=== PATIENT | female | born 1955 | race Caucasian/White ===

== ENCOUNTER 2018-08-22 10:35 | Inpatient (IN) ==
[2018-08-22] MEDS ORDERED: DILAUDID IV ONE ×3 (10:45→11:18)
[2018-08-22] MEDS ORDERED: ZOFRAN IV ONE ×2 (10:46→12:47)
--- NOTE | 2018-08-22 11:19 | Diag Imaging Result Doc PS360 ---
EXAM: ANKLE COMPLETE RIGHT 08/22/2018 HISTORY: injury TECHNIQUE: Portable right ankle two views COMMENT: There is a fracture dislocation with fractures of the distal fibula and medial malleolus and posterior distal tibia and anterior displacement of the ankle mortise with respect to the talar dome. There are also calcifications in the distal Achilles tendon which are presumably chronic. IMPRESSION: Fracture dislocation as described. Electronically signed by Allen Hagan 08/22/2018 11:17 AM
--- NOTE | 2018-08-22 11:46 | Diag Imaging Result Doc PS360 ---
EXAM: ANKLE 2 VIEWS RIGHT 08/22/2018 HISTORY: post reduct TECHNIQUE: One view lateral only COMMENT: The dislocation is not reduced. IMPRESSION: Fracture dislocation. Electronically signed by Allen Hagan 08/22/2018 11:44 AM
[2018-08-22] MEDS ORDERED: NS 1,000 ML IV ONE (12:13)
[2018-08-22] MEDS ORDERED: NS 1,000 ML ONE (12:17)
[2018-08-22] MEDS ORDERED: DIPRIVAN 1% IV ONE (12:31)
[2018-08-22] MEDS ORDERED: NARCAN ONE (12:39)
[2018-08-22] MEDS ORDERED: ZOFRAN ONE (12:48)
--- NOTE | 2018-08-22 13:12 | Diag Imaging Result Doc PS360 ---
EXAM: ANKLE 2 VIEWS RIGHT 08/22/2018 HISTORY: post reduc TECHNIQUE: Right ankle two views COMMENT: The dislocation present previously remains with the ankle mortise line anterior to the talar dome. There are fractures of the distal tibia and fibula as previously described. This is stabilized in a cast. IMPRESSION: Fracture dislocation. Electronically signed by Allen Hagan 08/22/2018 1:09 PM
--- NOTE | 2018-08-22 13:18 | Diag Imaging Result Doc PS360 ---
EXAM: ANKLE 2 VIEWS RIGHT 08/22/2018 HISTORY: right ankle fracture TECHNIQUE: Right ankle two views COMMENT: There is again noted the fracture dislocation with the plafond of the distal tibia lying anterior to the talar dome. IMPRESSION: Fracture dislocation. Electronically signed by Allen Hagan 08/22/2018 1:16 PM
--- NOTE | 2018-08-22 13:47 | Diag Imaging Result Doc PS360 ---
EXAM: CHEST-PORTABLE 08/22/2018 HISTORY: fall TECHNIQUE: AP portable upright at 1340 COMMENT: There is no evidence of acute cardiac or pulmonary disease. There are apparent granulomata in the right lower lobe. There is no evidence of pneumothorax or pleural fluid collections. IMPRESSION: No evidence of acute disease. Electronically signed by Allen Hagan 08/22/2018 1:45 PM
[2018-08-22 14:49] LABS: INR 0.98; PROTIME 13.8 Seconds (11.0-16.0)
[2018-08-22 14:58] LABS: BASO# 0.02 X1000 (0.0-0.2); BASO% 0.2 % (0.0-0.8); EOS# 0.01 X1000 (0.0-0.7); EOS% 0.1 % (0.0-10.0); HEMATOCRIT 37.7 % (37.0-47.0); HEMOGLOBIN 12.7 g/dL (12.0-16.0); IMM GRAN# 0.08 X1000 (0.0-0.04); IMM GRAN% 0.6 % (0.0-0.5); LYMPH# 0.86 X1000 (1.2-3.4); LYMPH% 6.8 % (20.5-51.1); MCH 30.4 PG (27-31); MCHC 33.7 g/dL (33-37); MCV 90.2 FL (81-99); MONO# 0.49 X1000 (0.11-0.59); MONO% 3.9 % (1.7-9.3); MPV 10.6 FL (7.4-10.4); NEUT# 11.13 X1000 (1.4-6.5); NEUT% 88.4 % (42.2-75.2); PLT 265 X1000 (130-400); RBC 4.18 XMIL (4.2-5.4); RDW 13.1 % (11.5-14.5); WBC 12.59 X1000 (4.8-10.8)
[2018-08-22 15:01] LABS: AGAP 12; BUN 17 mg/dL (8-22); CALCIUM 8.2 mg/dL (8.8-10.2); CHLORIDE 104 mmol/L (98-107); COSMO 282; CREATININE 0.8 mg/dL (0.5-0.9); ESTIMATED GFR > 60; GLUCOSE 121 mg/dL (70-104); POTASSIUM 3.4 mmol/L (3.5-5.1); SODIUM 140 mmol/L (136-145); TCO2 24 mmol/L (25-35)
[2018-08-22] MEDS ORDERED: TYLENOL PO PRN (15:21)
[2018-08-22] MEDS ORDERED: ZOFRAN IV PRN (15:21)
[2018-08-22] MEDS ORDERED: DILAUDID IV PRN (15:25)
[2018-08-22] MEDS ORDERED: FOSAMAX PO SCH ×3 (15:30→20:00)
[2018-08-22 15:59] LABS: URINE SOURCE CATH
[2018-08-22] MEDS ORDERED: KLOR-CON PO ONE (16:05)
[2018-08-22 16:11] LABS: BILIRUBIN URINE NEGATIVE (NEGATIVE); BLOOD URINE NEGATIVE (NEGATIVE); COLOR YELLOW; GLUCOSE URINE NEGATIVE (NEGATIVE); KETONE URINE NEGATIVE (NEGATIVE); LEUKOCYTES URINE NEGATIVE (NEGATIVE); NITRITE URINE NEGATIVE (NEGATIVE); PH URINE 7.5; PROTEIN URINE NEGATIVE (NEGATIVE); SP GRAVITY URINE 1.014; TURBIDITY URINE CLEAR (CLEAR); UROBILINOGEN URINE NORMAL (NORMAL)
[2018-08-22 16:12] LABS: UR EPITHELIAL CELLS <10 /HPF (<10); URINE BACTERIA NEGATIVE /HPF; URINE RBC <10 /HPF (<10); URINE WBC <10 /HPF (<10)
--- NOTE | 2018-08-22 16:53 | EKG Report ---
Test Performed on : 08/22/2018 1:59:19 PM Test Reason : ED. NO EKG ORDER FOR MUSE Blood Pressure : / mmHG Vent. Rate : 070 BPM Atrial Rate : 070 BPM P-R Int : 186 ms QRS Dur : 090 ms QT Int : 470 ms P-R-T Axes : 059 057 055 degrees QTc Int : 507 ms Normal sinus rhythm. ST & T wave abnormality, consider anterior ischemia Abnormal ECG No previous ECGs available Unconfirmed Result
--- NOTE | 2018-08-22 17:03 | HISTORY AND PHYSICAL ---
PRIMARY CARE PROVIDER: Dr. Magda Palumbo. CHIEF COMPLAINT: Fall with right ankle pain. HISTORY OF PRESENT ILLNESS: Ms. Jewels Birch is a 63-year-old female with a medical history of osteoarthritis, hypertension, chronic hypokalemia, GERD, anxiety, peptic ulcer disease and mitral valve prolapse. She states that she was in her flower garden gardening and was digging up some rosebushes. She stepped back in her flip-flops, and she felt her ankle turn and crunch, and she went to the ground. She has no other areas that are causing her pain. Imaging revealed that she has a dislocation and a fracture of the right ankle described as a fracture dislocation with fractures of the distal fibula and medial malleolus and posterior distal tibia and anterior displacement of the ankle mortise with respect to the talar dome and calcifications of the distal Achilles tendon that are chronic. There was an attempt to reset the right ankle 3 separate times under conscious sedation which was unsuccessful. Dr. Garcia has consulted and plan is for a right ankle repair in the morning. During assessment and evaluation of the patient, her heart rhythm on the monitor had a short 8-beat run of either sinus tachycardia or SVT. It did not appear irregular, but there was no obvious P wave either. Given the history of mitral valve prolapse and chronic hypokalemia, we will further evaluate the electrolyte imbalance. She did not feel any palpitations. She did not even realize it had happened. PAST MEDICAL HISTORY: 1. Osteoarthritis. 2. Hypertension. 3. Hypokalemia. 4. GERD. 5. Anxiety. 6. Peptic ulcer disease. 7. Mitral valve prolapse. SURGICAL HISTORY: 1. Hysterectomy. 2. Tonsillectomy. 3. Adenoidectomy. SOCIAL HISTORY: Denies tobacco, alcohol or illicit drug use. She lives at home with her and enjoys gardening and her flower garden. FAMILY HISTORY: Father from stomach cancer. Mother had leukemia. She had a grandfather who had myocardial infarction and arthritis. ALLERGIES: Penicillin causes her to pass out. Aspirin causes gastric irrigation. She states that codeine makes her dizzy and nauseated. HOME MEDICATIONS: 1. Alendronate sodium 35 mg p.o. weekly. 2. Cozaar 50 mg p.o. daily. 3. Potassium chloride extended release 20 mEq daily. 4. Mobic 7.5 mg p.o. daily. 5. Amlodipine 5 mg p.o. daily. 6. Protonix 40 mg p.o. daily. 7. Prozac 20 mg p.o. daily. REVIEW OF SYSTEMS: A 14-point review of systems are complete and all are negative except for those mentioned above in HPI. Currently, she is starting to feel a little more pressure coming back in the right ankle. It is warm to touch. It has got a good pulse. It is currently in an Antonio wrap type cast. She states that with the pain medication it did help, but it does make her a little bit nauseated when she takes it. PHYSICAL EXAMINATION: VITAL SIGNS: Temperature 97.3; heart rate 71; respiratory rate 24; blood pressure 122/65; 02 saturation 94% on room air. GENERAL: Ms. Jewels Birch is a 63-year-old female who is in no acute distress. She is able to answers questions appropriately. HEENT: Atraumatic, normocephalic. Pupils equal, round, and reactive to light. Extraocular movements intact. Mucous membranes are dry. NECK: Trachea midline. CARDIOVASCULAR: S1, S2. Regular rate and rhythm. No rubs or gallops and no obvious murmur although she reports mitral valve prolapse. No lower extremity edema, +2 dorsalis and radial pulses. Negative JVD or carotid bruits. PULMONARY: Clear to auscultate bilateral breath sounds. No accessory muscle use or work of breathing noted. GASTROINTESTINAL: Soft, nontender, nondistended, positive bowel sounds x4. EXTREMITIES: Moves all extremities equally except for the right lower extremity as it is currently painful for her to move and it is in a cast. NEUROLOGIC: A and O x3, follows commands. Sensory is intact although the right foot feels a little bit tingly, but she has sensation intact. SKIN: Warm, dry, intact. LABORATORY DATA: WBC 12,000, hemoglobin 12, hematocrit 37, platelet count 265,000, INR 0.98, PTT 29, sodium 140, potassium 3.4, BUN 17, creatinine 0.8, glucose 121, calcium 8.2. Urinalysis pending. IMAGING: She has had a chest x-ray with no acute disease. She has had 4 right ankle x-rays. The initial one revealed that there is a fracture and dislocation with fractures of the distal fibula, medial malleolus, posterior tibia and anterior displacement of the ankle mortise with respect to the talar dome and calcifications of the distal Achilles tendon that are chronic. Each additional ankle x-ray revealed 3 unsuccessful attempts to reduce the right ankle from the dislocation. EKG shows normal sinus rhythm, rate 70, QTc 507. There is no ST elevations, no ST depression. ASSESSMENT AND PLAN: 1. Fall with right ankle dislocation and fracture. Dr. Garcia to evaluate for surgery in the morning. We will make her n.p.o. after midnight, give her some IV fluids, Dilaudid for pain and some Phenergan or Zofran for nausea control with her pain medication. 2. History of mitral valve prolapse. No history of irregular heart rhythm, but had an 8-beat run of regular SVT. She has chronic hypokalemia of 3.4. We will give 40 of KCl and will check magnesium and replace that as well if we need to. I could not hear any obvious murmur. 3. Chronic hypokalemia. We will continue her potassium chloride extended release 20 mEq daily. 4. Osteoarthritis. We are going to hold the Mobic for now, pain control with the medications that have been ordered for this admit. She takes alendronate sodium 35 mg p.o. weekly for osteoporosis. 5. Hypertension. We will continue Cozaar and her Norvasc. 6. GERD. Continue her Protonix. 7. Anxiety. Continue her Prozac but will need to get an EKG repeat in the morning. She does have a little bit of a prolonged QTc of 507. We may actually discontinue her Zofran because of that and a little short run of SVT. 8. Peptic ulcer disease. Again, will continue Protonix. 9. DVT prophylaxis. SCD on the left leg and re-evaluate for DVT prophylaxis postoperatively. Dictated by ROSEANNE Samaniego for Guanako Parker MD cc: MD Guanako Aldana MD I agree with most components of history, physical, assessment and plan. A separate addendum has been dictated. SOLA
[2018-08-22] MEDS ORDERED: OXY IR PO ONE (17:56)
[2018-08-22] MEDS: ZOFRAN IV PRN ×2 (18:06→23:25)
--- NOTE | 2018-08-22 19:51 | ORTHOPAEDICS CONSULTATION ---
DATE: 08/22/2018 CHIEF COMPLAINT: Right ankle pain. HISTORY OF PRESENT ILLNESS: This is a 63-year-old female who presented to the emergency department today for right ankle pain. She reports she was wearing some sandals today and working in her garden and she took a step back and slipped and fell. She reported immediate ankle pain in her right ankle and was unable to stand up at that time. Family brought her to the emergency department to be evaluated. PAST MEDICAL HISTORY: Mitral valve prolapse, osteopenia, hypertension and GERD. MEDICATIONS: States amlodipine 5 mg daily, losartan 50 mg daily, Protonix 40 mg daily, potassium chloride 20 mg daily, and Fosamax 35 mg weekly. ALLERGIES: She reports she is allergic to aspirin and penicillin. PHYSICAL EXAMINATION: Vital Signs: Temperature 98.9, pulse rate 62, blood pressure 138/64, respiratory rate 20, oxygen is 95% on room air. General: Patient is awake, alert and sitting in the emergency department bed, talking with family. She is currently in a posterior leg splint on the right lower extremity. HEENT: Head is atraumatic, normocephalic. Eyes are equal and round. Neck: Supple. Chest: There is equal rise and fall. Cardiovascular: There is regular rate and rhythm. Abdomen: Soft, nontender. Right Lower Extremity: There is a posterior leg splint to the right lower extremity. There are good pedal pulses. There is good capillary refill. There is no pain with calf squeeze. ASSESSMENT: Right distal fibula and distal tibia fractures with displacement. PLAN: We will plan to do an ORIF of the right ankle tomorrow around noon. I discussed this with the family and they are willing to proceed. I went over the risks and benefits of surgery. The patient understands these risks that include possible damage to tendon or blood vessel, anesthesia complications, and . There is also risk of infection. We will see them tomorrow before surgery. Dictated by ROSEANNE Sena for Amador Garcia MD cc: ROSEANNE Sena MD
--- NOTE | 2018-08-22 20:13 | HISTORY AND PHYSICAL ---
ADDENDUM: I agree with most components of history, physical, assessment and plan. In brief, Ms. Birch is a 63-year-old lady with past medical history of essential hypertension, chronic hypokalemia, chronic GERD, anxiety, osteoporosis, mitral valve prolapse, peptic ulcer disease, osteoarthritis who came in after sustaining mechanical fall and twisting her ankle. In the emergency room she was found to have right-sided distal fibular displaced fractures and multiple attempts were made to perform closed reduction; however, they failed so the patient was given a cast and orthopedic surgery is planning open reduction internal fixation for definitive management. While in the emergency room, she also had 8 beats of regular narrow complex tachycardia episode without any symptoms. SUBJECTIVE: At the time of my evaluation, patient is in significant pain and is tremulous because of the pain. The patient's family is at bedside. PHYSICAL EXAMINATION: VITALS: Temperature 98.9 degrees, pulse 62, respiratory rate 20, blood pressure 138/64, saturating 95% on room air. GENERAL: The patient is tremulous and is in pain. HEENT: Oral cavity is moist. Air entry bilaterally equal. No wheeze, rhonchi, crackles. CARDIOVASCULAR: S1, S2 normal. No murmur or gallop. ABDOMEN: Soft, nontender. EXTREMITIES: No lower extremity edema. The right lower extremity is in cast. Perfusion appears adequate to touch on the right distal toes. LABORATORY DATA: Consistent with leukocytosis. Normal hemoglobin, hematocrit, and platelet count. She does have hypokalemia which is being repleted. MICROBIOLOGY: No data. IMAGING: Chest x-ray did not have any acute cardiopulmonary process. Ankle x-ray has right distal fibular displaced fracture. EKG had normal sinus rhythm. There were flat T-waves in V3, V4, V5; however patient did not have any chest pain and/or known history of coronary artery disease. ASSESSMENT AND PLAN: 1. Mechanical fall with right distal fibular displaced fracture and failed closed reduction. Dr. Garcia is planning likely open reduction internal fixation tomorrow. Continue patient on intravenous fluids, intravenous Dilaudid with p.o. pain medications. 2. I will resume her home medications for essential hypertension, including losartan and amlodipine. 3. I will give her Phenergan as needed for nausea and vomiting. DISPOSITION: The patient remains inside the hospital. Await further orthopedic recommendation. Plan of care discussed with the patient and her family at bedside. All other questions have been answered. cc: Guanako Parker MD
[2018-08-22] MEDS: PHENERGAN IV PRN (20:56)
[2018-08-22] MEDS: DILAUDID IV PRN (20:57)
[2018-08-22] MEDS: SODIUM CHLORIDE 0.9% INJ PRN (20:57)
[2018-08-22] MEDS: NORCO-7.5 PO PRN (23:25)
[2018-08-23] MEDS: PHENERGAN IV PRN ×2 (03:25→07:00)
[2018-08-23] MEDS: DILAUDID IV PRN ×2 (03:26→07:00)
[2018-08-23] MEDS: ZOFRAN IV PRN (05:03)
[2018-08-23] MEDS: NORCO-7.5 PO PRN ×2 (05:03→08:35)
[2018-08-23] MEDS: SODIUM CHLORIDE 0.9% INJ PRN (07:00)
[2018-08-23 07:06] LABS: BASO# 0.01 X1000 (0.0-0.2); BASO% 0.1 % (0.0-0.8); EOS# 0.07 X1000 (0.0-0.7); EOS% 0.8 % (0.0-10.0); HEMATOCRIT 37.9 % (37.0-47.0); HEMOGLOBIN 12.3 g/dL (12.0-16.0); IMM GRAN# 0.02 X1000 (0.0-0.04); IMM GRAN% 0.2 % (0.0-0.5); LYMPH# 2.04 X1000 (1.2-3.4); LYMPH% 24.6 % (20.5-51.1); MCH 30.1 PG (27-31); MCHC 32.5 g/dL (33-37); MCV 92.7 FL (81-99); MONO% 13.3 % (1.7-9.3); MPV 10.3 FL (7.4-10.4); NEUT# 5.04 X1000 (1.4-6.5); PLT 281 X1000 (130-400); RBC 4.09 XMIL (4.2-5.4); RDW 13.5 % (11.5-14.5); WBC 8.28 X1000 (4.8-10.8)
[2018-08-23 07:07] LABS: INR 1.04; PROTIME 14.5 Seconds (11.0-16.0)
[2018-08-23 07:08] LABS: PTT 29.4 Seconds (22.3-41.8)
[2018-08-23 07:10] LABS: AGAP 9; ALB/GLOB RATIO 1.7; ALKALINE PHOSPHATASE 61 U/L (32-104); BUN 11 mg/dL (8-22); CALCIUM 8.8 mg/dL (8.8-10.2); CHLORIDE 106 mmol/L (98-107); COSMO 284; CREATININE 0.8 mg/dL (0.5-0.9); ESTIMATED GFR > 60; GLUCOSE 92 mg/dL (70-104); GOT 16 U/L (10-30); GPT 14 U/L (10-36); MAGNESIUM 2.1 mg/dL (1.5-2.7); POTASSIUM 3.6 mmol/L (3.5-5.1); SODIUM 143 mmol/L (136-145); TCO2 28 mmol/L (25-35); TOTAL BILIRUBIN 0.68 mg/dL (0.20-1.00); TOTAL PROTEIN 6.4 g/dL (6.3-8.3)
[2018-08-23] MEDS: COZAAR PO SCH (08:36)
[2018-08-23] MEDS: NORVASC PO SCH (08:36)
[2018-08-23] MEDS: KLOR-CON PO SCH (08:37)
[2018-08-23] MEDS: PROTONIX PO SCH (08:37)
[2018-08-23] MEDS ORDERED: KLOR-CON PO SCH (09:00)
[2018-08-23] MEDS ORDERED: PROZAC PO SCH (09:00)
[2018-08-23] MEDS ORDERED: DIPRIVAN 1% ONE (10:51)
[2018-08-23] MEDS ORDERED: XYLOCAINE-MPF 2% ONE (10:52)
[2018-08-23] MEDS ORDERED: SENSORCAINE-MPF 0.5%/EPI 1:200,000 ONE (11:02)
[2018-08-23] MEDS ORDERED: NEOSPORIN G.U. IRRIGANT ONE (11:02)
[2018-08-23] MEDS ORDERED: KEFZOL 2 GM/D5W 2 GM/50 ML IVPB ONE (11:32)
[2018-08-23] MEDS ORDERED: NAROPIN 0.5% ONE (11:55)
[2018-08-23] MEDS ORDERED: FENTANYL ONE (12:24)
[2018-08-23] MEDS ORDERED: ZOFRAN IV PRN (13:50)
[2018-08-23] MEDS ORDERED: MORPHINE IV PRN (13:50)
[2018-08-23] MEDS ORDERED: MILK OF MAGNESIA PO PRN (13:50)
[2018-08-23] MEDS ORDERED: HALDOL IV PRN (14:00)
[2018-08-23] MEDS ORDERED: NS 1,000 ML ONE (14:09)
[2018-08-23] MEDS: NS 1,000 ML IV SCH (15:01)
[2018-08-23] MEDS: TYLENOL PO SCH ×2 (15:09→23:24)
[2018-08-23] MEDS: OXY IR PO PRN ×2 (15:11→19:34)
--- NOTE | 2018-08-23 18:00 | PROGRESS NOTE ---
DATE: 08/23/2018 SUBJECTIVE: S she is status post open reduction and internal fixation of her right ankle fracture. She seems to be doing fine. She is completely alert, awake and oriented x 3. Her is at the bedside. We will monitor. OBJECTIVE: Vital Signs: Temperature 98.4, pulse 83, respiratory rate 16, blood pressure 110/57, oxygen saturation 93% on room air. HEENT: Head normocephalic, no trauma. PERRLA. Neck: Supple. No JVD. No masses. Central trachea. Chest: Clear to auscultation. No wheezing. No rales. Abdomen: Soft, nontender, nondistended. No hepatosplenomegaly. Extremities: No edema. She does have a cast at the level of the right ankle. I can see her toes. She can move them. I do not see any changes, color changes or neurological problems at this moment. Neurologic: The patient is alert and oriented x 3. No focal neurological deficits. LABORATORY: WBC 8.2, hemoglobin 12.3, hematocrit 38.8, platelet 281,000. Sodium 143, potassium 3.6, chloride 106, bicarbonate 28, BUN 11, creatinine 0.8 glucose 92, calcium 8.8. ASSESSMENT AND PLAN: 1. Mechanical fall with right displaced ankle fracture, status post open reduction and internal fixation. She had the surgery today. We will continue with the same management, pain medication. 2. Hypertension, stable. Continue to monitor. Continue with same management. 3. Gastroesophageal reflux disease, continue with PPI. cc: Dejuan Houser MD
--- NOTE | 2018-08-23 18:22 | OPERATIVE NOTE ---
PROCEDURE DATE: 08/23/2018 PREOPERATIVE DIAGNOSIS: Right bimalleolar ankle fracture-dislocation. POSTOPERATIVE DIAGNOSIS: Right bimalleolar ankle fracture-dislocation. PROCEDURE: Open reduction, internal fixation, right bimalleolar ankle fracture. SURGEON: Lyndon Garcia MD [employer] PROFESSOR: ROSEANNE Sena. Mr. Nuñez was necessary for proper traction and manipulation of the ankle during the case. ANESTHESIA: General. COMPLICATION: None. PROCEDURE IN DETAIL: This 63-year-old female presents status post ankle fracture for surgical fixation. Risks, benefits, and no guarantees were discussed, and she is willing to proceed. She was taken to the operating room and satisfactory anesthesia obtained. The right ankle was prepped and draped in the usual sterile fashion. A time-out was taken to confirm operative site, procedure, and patient. The leg was wrapped with an Esmarch and tourniquet inflated to 300 mmHg. A lateral incision was made over the distal fibular fracture and a comminuted long oblique distal fibular fracture identified. An interfragmentary screw was used to reduce the 2 major fragments in the anterior-posterior plane with compression screw fixation. The precontoured distal fibular plate was then secured with a compression screw. Locking screws were placed distally and proximally to secure the fixation with care taken to avoid any articular penetration. Syndesmosis was restored after fibular fixation. Afterwards, this was irrigated with irrigant and closed in layers with 2-0 Vicryl and skin chinyere. A medial incision was then made over the medial malleolus. The anterior aspect of the medial malleolus was noted to be in a distal solid piece with the posterior aspect of the distal medial malleolus comminuted. The deltoid ligament was intact, attached predominantly to the anterior piece. The ankle was reduced. The posterior tibial tendon inspected and noted to be intact. The anterior major part of medial malleolus, which was not comminuted, was reduced provisionally with a 2.0 K-wire. Afterwards this was replaced with a 45 length partially threaded 4-0 cancellous screw, securing secure press-fit and compression fixation of the medial malleolus. The C-arm was used to verify accurate fracture reduction and hardware placement. This wound was irrigated with irrigant and closed in layers with 2-0 Vicryl and skin chinyere. A short-leg cast was applied. No intraoperative complications were noted. Instrument count was then correct. She was recovered from anesthesia and transferred to recovery room in stable condition. cc: Amador Garcia MD
--- NOTE | 2018-08-23 20:30 | ORTHOPAEDICS PROGRESS NOTE ---
DATE: 08/23/2018 SUBJECTIVE DATA: Miss Birch is seen on postop day 0 of her right ankle ORIF. She reports she has 0 pain at this time. OBJECTIVE DATA: There is good sensation to right lower extremity. There is good capillary refill in toes. The cast is intact. Vital signs are stable. LABORATORIES: Labs are within normal limits. ASSESSMENT: Right distal tibia and fibular fractures with internal fixation. PLAN: We will plan the let Miss Birch go at this time. She is cleared to be discharged from Orthopedics. She will need to follow up in office in roughly 10 to 14 days to have her cast removed and chinyere removed. If she has any questions or concerns, she can call or come by the office. We will send her home with some Enjoi 7.5 for pain. I have also given her a prescription for crutches and Zofran for nausea. We will see her in office. Dictated by ROSEANNE Sena for Amador Garcia MD cc: ROSEANNE Sena MD
[2018-08-23] MEDS ORDERED: COLACE PO SCH (21:00)
[2018-08-23] MEDS: KEFZOL 1 GM/D5W 1 GM/50 ML IVPB IV SCH (23:25)
[2018-08-24] MEDS: NS 1,000 ML IV SCH ×2 (02:07→16:13)
[2018-08-24] MEDS: OXY IR PO PRN ×5 (02:38→16:11)
[2018-08-24] MEDS: KEFZOL 1 GM/D5W 1 GM/50 ML IVPB IV SCH ×2 (05:58→14:32)
[2018-08-24 06:47] LABS: HEMATOCRIT 36.3 % (37.0-47.0); HEMOGLOBIN 11.3 g/dL (12.0-16.0)
[2018-08-24] MEDS: TYLENOL PO SCH ×2 (07:20→14:29)
[2018-08-24 07:25] LABS: AGAP 9; BUN 9 mg/dL (8-22); CALCIUM 8.2 mg/dL (8.8-10.2); CHLORIDE 105 mmol/L (98-107); COSMO 276; CREATININE 0.7 mg/dL (0.5-0.9); ESTIMATED GFR > 60; GLUCOSE 95 mg/dL (70-104); POTASSIUM 3.3 mmol/L (3.5-5.1); SODIUM 139 mmol/L (136-145); TCO2 25 mmol/L (25-35)
[2018-08-24] MEDS ORDERED: FERROUS SULFATE PO SCH (08:00)
--- NOTE | 2018-08-24 08:14 | ORTHOPAEDICS PROGRESS NOTE ---
DATE: 08/24/2018 Ms. Birch is seen today status post ORIF of her ankle. She reports appropriate pain and soreness about the ankle. She is afebrile. There is good capillary refill. There is minimal pain to no pain on passive extension. She is able to wiggly the toes up and down actively. She can be mobilized today and discharged home on a walker. I have written her a prescription for [place] 10 mg as well as antibiotics. We will see her back in roughly 10 days' time for a followup. cc: Amador Garcia MD
[2018-08-24] MEDS ORDERED: ASPIRIN PO SCH (09:00)
[2018-08-24] MEDS ORDERED: PERIDEX MT SCH (09:00)
[2018-08-24] MEDS: NORVASC PO SCH (09:15)
[2018-08-24] MEDS: KLOR-CON PO SCH (09:15)
[2018-08-24] MEDS: COZAAR PO SCH (09:15)
[2018-08-24] MEDS: PROTONIX PO SCH (09:16)
[2018-08-24] MEDS ORDERED: KLOR-CON PO ONE (09:29)
[2018-08-24 15:59] VITALS: BP 116/57
--- NOTE | 2018-08-25 07:41 | DISCHARGE SUMMARY ---
ADMISSION DATE: 08/22/2018 DISCHARGE DATE: 08/24/2018 DISCHARGE DIAGNOSES: 1. Mechanical fall with right displaced ankle fracture, status post open reduction and internal fixation. 2. Hypertension. 3. Gastroesophageal reflux disease. PROCEDURES PERFORMED: 1. Right ankle x-ray dated 08/22/2018. Impression: Fracture dislocation with fracture of the distal fibula and medial malleolus and posterior distal tibia and anterior displacement of the ankle more ties with respect to the alar dome. 2. Chest x-ray dated 08/22/2018. Impression: No evidence of acute disease. SURGERY PERFORMED: On 08/23/2018 with open reduction, internal fixation of the right B malleolar ankle fracture done by Dr. Garcia. HOSPITAL COURSE: 63-year-old female with a past medical history of osteoarthritis, hypertension, chronic hypokalemia, GERD, anxiety, peptic ulcer disease, and mitral valve prolapse, admitted on 08/22/2018. She states that she was in the garden and she was digging up some ignacia bushes. She stepped back in her flip-flops and she fell. Her ankle turned and crunched, and she went to the ground. She was not complaining of any other pain. Image revealed a fracture/dislocation of the right ankle. In the emergency department there was an attempt to reduce this fracture 3 times under conscious sedation but was unsuccessful. Orthopedic Surgery was consulted and they planned to do surgery the next morning, which they did. They successfully did surgery in the morning on 08/23/2018, she was sent to recovery and then to the medical floor without any kind of problems. We restarted most of her medications that she was taking at home and she was stable including vital signs and lab work. We tried to control her pain. Today after removing the Huang and working with physical therapy, since the patient has been stable, we will discharge this patient home. At the moment of discharge the patient was in a stable medical condition, tolerating p.o. as well. at the bedside. PHYSICAL EXAMINATION: Vital Signs: Temperature 98.7 degrees, pulse 81, respiratory rate 15, blood pressure 116/57, oxygen saturation 96 on room air. HEENT: Head normocephalic. No trauma. PERRLA. Neck: Supple. No JVD. No masses. Central trachea. Chest: Clear to auscultation. No wheezing. No rales. Abdomen: Soft, nontender, nondistended. No hepatosplenomegaly. Extremities: She has a cast at the level of the right ankle, her toes look fine, no signs of ischemia or neurological problems. Neurological: The patient is alert and oriented x3. No focal deficits. LABORATORY: Sodium 139, potassium 3.3, chloride 105, bicarbonate 25, BUN 9, creatinine 0.7, glucose 95, calcium 8.2. DISCHARGE MEDICATIONS: 1. Alendronate sodium 35 mg p.o. as directed q.7 days. 2. Amlodipine 5 mg p.o. daily. 3. Docusate 200 mg p.o. at bedtime. 4. Ferrous sulfate 325 mg p.o. with breakfast. 5. Losartan 50 minutes 50 mg p.o. daily. 6. Pantoprazole 40 mg p.o. daily. 7. Potassium chloride 20 mg p.o. daily. 8. Prozac 20 mg p.o. daily. 9. [place] 10 q.4 hours as needed for pain x30 tablets. 10. Magnesium hydroxide 30 mL p.o. daily as needed for constipation. 11. Meloxicam 7.5 mg p.o. daily. 12. Zofran 4 mg p.o. q.6 hours. 13. Bactrim DS 1 tablet p.o. twice a day for 10 days. FOLLOWUP: Follow up with her primary care physician in 1 to 2 weeks and also follow up with Dr. Garcia, she will need to call for schedule. He wants to see her in 10 days. cc: Dejuan Houser MD
--- NOTE | 2018-08-27 19:38 | PROVIDER DOCUMENTATION ---
This chart was entered by Tiffanie More Scribe, acting as scribe for Nicola Easton MD. HPI-Musculoskeletal Pain/Inj - GENERAL Chief Complaint: Extremity Injury Stated Complaint: FALL FROM STANDING Time Seen by Provider: 08/22/18 10:41 Source: patient - HX OF PRESENT ILLNESS-MUSKULOSKELTAL Nature of Presenting Problem: Patient is a 63 year old female who presents to the ED via EMS with right ankle pain. Patient states she stepped in a hole and fell. Denies head injury. States she is nauseated. Quality of Pain: reports: aching Severity in ED: moderate Onset/Duration: just prior to arrival Timing: still present Modifying Factors: improves with: nothing Any recent injury?: Yes (fell) Locality of Occurance: Home Similar Symptoms Previously?: No Recently seen or treated by another doctor?: No - FALL INJURY Location of Pain/Injury: reports: lower extremity (right ankle) Pain Radiation: reports: no radiation Reason for Fall: reports: other (stepped in hole) Symptoms prior to fall:: reports: none Loss of Consciousness: no loss of consciousness Injury Associated Symptoms: reports: nausea - LOWER EXTREMITY PAIN/INJURY Lower Extremities Pain: ankle: right Context / Method of Injury: reports: fell Associated Symptoms: reports: denies symptoms Review of Systems - Adult - REVIEW OF SYSTEMS - ADULT Constitutional: reports: no symptoms reported. denies: chills, fever, fatique Eyes: reports: no symptoms reported Ears, Nose, Mouth & Throat: reports: no symptoms reported Cardiovascular: reports: no symptoms reported Respiratory: reports: no symptoms reported Gastrointestinal: reports: see HPI, nausea. denies: abdominal pain, diarrhea, vomiting Genitourinary: reports: no symptoms reported Musculoskeletal: reports: see HPI, other (right ankle pain). denies: back pain, neck pain Integumentary: reports: no symptoms reported Neurological: reports: no symptoms reported Psychiatric: reports: no symptoms reported Endocrine: reports: no symptoms reported Hematologic/Lymphatic: reports: no symptoms reported Allergic/Immunologic: reports: no symptoms reported All Other Systems: Reviewed and Negative Past History - Adult - PAST MEDICAL HISTORY-ADULT Review of Records: reports: Old Records Reviewed, Nursing Assessment Review, Medications Reviewed, Social history reviewed & non-contributory. Major Childhood Illnesses: reports: denies history Cardiovascular: reports: denies history Respiratory: reports: denies history Gastrointestinal: reports: denies history Obstetrical/Gynecological: reports: denies history Genitourinary: reports: denies history Musculoskeletal: reports: denies history Neurological: reports: denies history Psychiatric: reports: denies history Endocrine/Immune: reports: denies history Other Conditions: reports: denies history - PRIOR SURGERIES/PROCEDURES Surgical/Procedure History: reports: reviewed, not pertinent - IMMUNIZATION STATUS Childhood Immunizations: See Nurse Assessment Flu Vaccine: See Nurse Assessment - FAMILY HISTORY Family History: reviewed, not pertinent - SOCIAL HISTORY Smoking: denies Substance Use: denies Physical Exam-Injury Related - Physical Exam-Injury Related Initial Vital Signs Reviewed: Yes General Appearance: alert, mild distress. negative: lethargic, slow to respond Respiratory: chest non-tender, lungs clear, normal breath sounds. negative: rhonchi, wheezing Cardiovascular: normal peripheral pulses, regular rate, rhythm. negative: tachycardia, systolic murmur Peripheral Pulses: dorsalis-pedis (R): 2+, dorsalis-pedis (L): 2+ Abdominal Exam: normal bowel sounds, non tender, soft. negative: guarding, rebound Extremity: normal capillary refill, deformity (right ankle), swelling (right ankle), tenderness (right ankle), other (ecchymosis to right ankle. decreased ROM to right ankle due to pain.). negative: normal range of motion Integumentary: warm/dry, ecchymosis (right ankle), swelling (right ankle), tenderness (right ankle). negative: abrasion, laceration Neurologic: grossly normal. negative: aphasia, facial droop Psych/Mental Status: oriented x 3. negative: anxious, paranoid, tearful Progress - PLAN OF CARE/RESULTS Progress/Plan/Lab Results: Orders Category Date Time Status Admit - [facility] Routine AdmDCTranf 08/22/18 15:21 Active Apply Mechanical Device [QM] ORDERED Care 08/22/18 16:38 Active Intake and Output-Strict ORDERED Care 08/22/18 16:38 Active Nursing- Assist w/ IS as order ORDERED Care 08/22/18 16:38 Completed Nursing- MD Consult Request ROUTINE Care 08/22/18 15:21 Completed Nursing- Obtain EKG once Care 08/22/18 13:28 Completed Vital Signs Order Q 4-HR ASSESS Care 08/22/18 16:38 Active Z-Document. for Tele Applied ORDERED Care 08/22/18 16:38 Completed Physician/Provider Consults Routine Cons 08/22/18 15:21 Ordered Social Service Consult Routine Cons 08/22/18 16:38 Active Regular Diet Diet 08/22/18 15:21 Completed ANKLE 2 VIEWS RIGHT [RAD] Stat Exams 08/22/18 11:08 Completed ANKLE 2 VIEWS RIGHT [RAD] Stat Exams 08/22/18 11:24 Completed ANKLE 2 VIEWS RIGHT [RAD] Stat Exams 08/22/18 12:58 Completed ANKLE COMPLETE RIGHT [RAD] Stat Exams 08/22/18 10:46 Completed CHEST-PORTABLE [RAD] Stat Exams 08/22/18 13:28 Completed BMP [BASIC METABOLIC PANEL] [CHEM] Stat Lab 08/22/18 14:00 Completed CBC WITH DIFF [HEME] Routine Lab 08/23/18 06:11 Completed CBC WITH ELECTRONIC DIFF [HEME] Stat Lab 08/22/18 14:00 Completed COMPREHENSIVE METABOLIC PANEL [CHEM] Routine Lab 08/23/18 06:11 Completed MAGNESIUM [CHEM] Routine Lab 08/23/18 06:11 Completed PROTIME WITH INR [COAG] Routine Lab 08/23/18 06:11 Completed PROTIME WITH INR [COAG] Stat Lab 08/22/18 14:00 Completed PTT [COAG] Routine Lab 08/23/18 06:11 Completed PTT [COAG] Stat Lab 08/22/18 14:00 Completed TYPE & SCREEN [BBK] Stat Lab 08/22/18 14:00 Completed URINALYSIS W/POSS RFLX CULT [URINALYSIS] Stat Lab 08/22/18 15:48 Completed 0.9% Sodium Chloride Inj [Ns] 1,000 ml Med 08/22/18 12:17 Discontinued .ROUTE As directed 0.9% Sodium Chloride Inj [Ns] 1,000 ml Med 08/22/18 12:13 Discontinued IV 999 mls/hr Acetaminophen [Tylenol] Med 08/22/18 15:21 Discontinued 650 mg PO Q6H PRN PRN Alendronate [Fosamax] Med 08/22/18 15:30 Discontinued 35 mg PO DIRECTED Amlodipine [Norvasc] Med 08/23/18 09:00 Discontinued 5 mg PO DAILY Fluoxetine [Prozac] Med 08/23/18 09:00 Discontinued 20 mg PO DAILY Hydrocodone/APAP 7.5 mg/325 mg [[place]-7.5] Med 08/22/18 15:21 Discontinued 1 - 2 each PO Q4H PRN PRN Hydromorphone [Dilaudid] Med 08/22/18 10:45 Discontinued 0.5 mg IV NOW ONE Hydromorphone [Dilaudid] Med 08/22/18 11:18 Discontinued 0.5 mg IV NOW ONE Hydromorphone [Dilaudid] Med 08/22/18 11:04 Discontinued 1 mg IV NOW ONE Hydromorphone [Dilaudid] Med 08/22/18 15:25 Discontinued 1 mg IV Q4H PRN PRN Losartan [Cozaar] Med 08/23/18 09:00 Discontinued 50 mg PO DAILY Naloxone [Narcan] Med 08/22/18 12:39 Discontinued 0.4 mg .ROUTE .STK-MED ONE Ondansetron [Zofran] Med 08/22/18 12:48 Discontinued 4 mg .ROUTE .STK-MED ONE Ondansetron [Zofran] Med 08/22/18 10:46 Discontinued 4 mg IV NOW ONE Ondansetron [Zofran] Med 08/22/18 12:47 Discontinued 4 mg IV NOW ONE Ondansetron [Zofran] Med 08/22/18 15:21 Discontinued 4 mg IV Q4H PRN PRN Pantoprazole [Protonix] Med 08/23/18 09:00 Discontinued 40 mg PO DAILY Potassium Chloride E.r. [Klor-Con] Med 08/23/18 09:00 Discontinued DOSE meq PO DAILY Propofol [Diprivan 1%] Med 08/22/18 12:31 Discontinued 50 mg IV STAT ONE Incentive Spirometer Routine Oth 08/22/18 16:38 Completed Oxygen Device Routine Oth 08/22/18 16:38 Completed Pulse Oximetry Routine Oth 08/22/18 16:38 Completed Telemetry [OM.EQ] Routine Oth 08/22/18 16:38 Active Transfer/Admit Order [TRANSFER] Routine Transfer 08/22/18 15:16 Completed 1343 - Dr. Easton consulted with ROSEANNE Vitale for Hospitalist, about patient. Winifred states call back when labs result. 1510 - Dr. Easton consulted with ROSEANNE Zambrano for Hospitalist, about patient. Hospitalist accepted admit. Result Diagrams: 08/24/18 06:03 08/24/18 06:03 - EKG 1 Time of EKG reading by physician:: 13:59 EKG Read and Signed by:: Nicola Easton EKG Interpretation (*Must complete 3 of following elements*): Abnormal Rate: 70 Rhythm: normal sinus rhythm [place]: normal [place] Interval: normal Comments: ST & T wave abnormality, consider anterior ischemia - XRAY 1 XRAY: Right XRAY Study: Ankle Impression: See EMR Report ( EXAM: ANKLE COMPLETE RIGHT 08/22/2018 HISTORY: injury TECHNIQUE: Portable right ankle two views COMMENT: There is a fracture dislocation with fractures of the distal fibula and medial malleolus and posterior distal tibia and anterior displacement of the ankle mortise with respect to the talar dome. There are also calcifications in the distal Achilles tendon which are presumably chronic. IMPRESSION: Fracture dislocation as described. Electronically signed by Allen Hagan 08/22/2018 11:17 AM 08/22/18 1117 Interpreting Physician: Allen Hagan MD Dictated Date/Time: 08/22/18 1116 cc: Nicola Easton MD; Magda Palumbo MD) 2 XRAY: Right XRAY Study: Ankle Impression: See EMR Report ( EXAM: ANKLE 2 VIEWS RIGHT 08/22/2018 HISTORY: post reduct TECHNIQUE: One view lateral only COMMENT: The dislocation is not reduced. IMPRESSION: Fracture dislocation. Electronically signed by Allen Hagan 08/22/2018 11:44 AM 08/22/18 1144 Interpreting Physician: Allen Hagan MD Dictated Date/Time: 08/22/18 1143 cc: Nicola Easton MD; Magda Palumbo MD) 3 XRAY: Right XRAY Study: Ankle Impression: See EMR Report ( EXAM: ANKLE 2 VIEWS RIGHT 08/22/2018 HISTORY: post reduc TECHNIQUE: Right ankle two views COMMENT: The dislocation present previously remains with the ankle mortise line anterior to the talar dome. There are fractures of the distal tibia and fibula as previously described. This is stabilized in a cast. IMPRESSION: Fracture dislocation. Electronically signed by Allen Hagan 08/22/2018 1:09 PM 08/22/18 1309 Interpreting Physician: Allen Hagan MD Dictated Date/Time: 08/22/18 1308 cc: Nicola Easton MD; Magda Palumbo MD) 4 XRAY: Right XRAY Study: Ankle Impression: See EMR Report (EXAM: ANKLE 2 VIEWS RIGHT 08/22/2018 HISTORY: right ankle fracture TECHNIQUE: Right ankle two views COMMENT: There is again noted the fracture dislocation with the plafond of the distal tibia lying an terior to the talar dome. IMPRESSION: Fracture dislocation. Electronically signed by Allen Hagan 08/22/2018 1:16 PM 08/22/18 1316 Interpreting Physician: Allen Hagan MD Dictated Date/Time: 08/22/18 1315 cc: Nicola Easton MD; Magda Palumbo MD) - CONSULTS/PCP/HOSPITALIST Notification #1 *Consult/PCP/Hospitalist*: Dr. Garcia Time Discussed: 12:29 Reason/Comments: Dr. Easton consulted with Dr. Garcia about patient. Consult Disposition: other (Dr. Garcia states try to reduce ankle again then have patient follow up in office today.) #2 Consult: Dr. Garcia Time Discussed: 13:21 Reason/Comments: Dr. Easton consulted with Dr. Garcia about patient. Consult Disposition: other (Dr. Garcia will look at xrays) #3 Consult: Dr. Garcia's office Time Discussed: 13:28 Reason/Comments: Dr. Easton consulted with Dr. Garcia's office about patient. Consult Disposition: other (stated Dr. Garcia wants the patient admitted to hospitalist and he will consult.) Procedures - SPLINTING Right Lower Extremity Other Location: right ankle Pre-Procedure Neurovascular Exam: Intact Splint Application (Hand-Made): Posterior OCL, Stir-Up Applied By: conveyor technician Post Procedure Neurovascular Exam: Intact - DISLOCATION REDUCTION Right Ankle Consent Form Signed?: Yes Time-Out Verification Completed?: Yes Pre-Procedure Neurovascular Exam: Intact Conscious Sedation: Yes (for last attempt of reduction ) Reduction Attempts: 4 Post Reduction Film: Not Reduced Post Reduction Splint Applied?: Yes Departure - Departure Date of Disposition Decision: 08/22/18 Time of Disposition Decision: 13:29 DIAGNOSIS: Fracture dislocation of ankle joint Qualifiers: Encounter type: initial encounter Fracture type: closed Laterality: right Qualified Code(s): S82.891A - Other fracture of right lower leg, initial encounter for closed fracture Disposition: ADMITTED INPATIENT 09 Certified Medical Emergency: Emergent Condition: Serious - Critical Care Note This patient required my direct & personal management of CC.: No Attestation - Physician/ BAR Attestation The physician spent face to face time with patient:: Yes Advanced Practice Provider documentation review:: Supervising physician onsite and consulted in the evaluation and care of this patient. The physician did have a face to face encounter with the patient. This chart was documented by the indicated scribe, (Tiffanie More Scribe) and accurately reflects the services I performed and decisions made by me, Nicola Easton MD, as attested by the provider's signature.
== END 2018-08-24 16:45 | disposition home or self-care (01) | DRG 493 ==
LOC: SUPCPDRO → ED 10:35 → 4N 15:42 → SUATTDRO 15:42 → 4N 08-23 14:25
PROVIDERS: ATTEND Internal Medicine
CPT/HCPCS: 71010; 71045; 73600; 73610; 76000; 80048; 80053; 81001; 83735; 84484; 85014; 85018; 85025; 85610; 85730; 86850; 86900; 86901; 93005; 94761; 94799; 97116; 97162; 97530; A9270; J0690; J1170; J2270; J2310; J2405; J2550; J2795; J3010; J7030